=== PATIENT | female | born 2000 | race African-American/Black ===

== ENCOUNTER 2023-11-18 16:52 | Emergency (ER) | payer SELFPAY ==
[~2023-11-18] VITALS: Ht 175.3 cm; Wt 108.9 kg
[2023-11-18] MEDS: KETOROLAC TROMETHAMINE 60 MG/2 ML VIAL IM ONE (18:17)
[2023-11-18 19:15] VITALS: BP 129/73; PULSE 90; RESP 16; TEMP 98.8; O2SAT 100
[2023-11-18] MEDS ORDERED: KETOROLAC TROME10 MG PO (19:15)
== END 2023-11-18 19:12 | disposition home or self-care (01) ==
LOC: ER 17:05
DX: R50.9 Fever, unspecified (principal); K02.9 Dental caries, unspecified; R25.2 Cramp and spasm
CPT/HCPCS: 70486; 99283; J1885

== ENCOUNTER 2023-12-01 22:05 | Emergency (ER) | payer SELFPAY ==
[~2023-12-01] VITALS: Ht 175.3 cm; Wt 108.9 kg
[~2023-12-01 22:05] MED LIST: KETOROLAC TROME10 MG PO
[2023-12-01 22:28] VITALS: O2SAT 99
[2023-12-01 23:02] LABS: BILIRUBIN,URINE NEGATIVE (NEGATIVE); CLARITY,URINE CLEAR (CLEAR); COLOR,URINE YELLOW (YELLOW); GLUCOSE, URINE NEGATIVE (NEGATIVE); KETONES,URINE NEGATIVE (NEGATIVE); LEUKOCYTE ESTERASE ,URINE NEGATIVE (NEGATIVE); NITRITE,URINE NEGATIVE (NEGATIVE); PH,URINE 6 (5 - 7); PREGNANCY TEST, URINE NEGATIVE (NEGATIVE); PROTEIN,URINE DIPSTICK NEGATIVE (NEGATIVE); URINE UROBILINOGEN 0.2 mg/dL (0.2 - 1)
[2023-12-01 23:38] LABS: BACTERIA,URINE MANY /HPF; EPITHELIAL CELLS,URINE MANY /LPF; RBC,URINE 0-5 /HPF (0-5); WBC,URINE (MAN) 0-5 /HPF (0-5)
== END 2023-12-02 | disposition home or self-care (01) ==
LOC: ER 22:10
DX: R10.30 Lower abdominal pain, unspecified (principal); R10.2 Pelvic and perineal pain; K02.9 Dental caries, unspecified; F41.9 Anxiety disorder, unspecified; F17.210 Nicotine dependence, cigarettes, uncomplicated
CPT/HCPCS: 81001; 81025; 99282